=== PATIENT | female | born 1940 | race Caucasian/White ===

== ENCOUNTER 2020-07-22 13:01 | Inpatient (IN) | payer MEDICARE, MEDICAID ==
[~2020-07-22] VITALS: Ht 170.2 cm; Wt 81.6 kg
[2020-07-22] MEDS ORDERED: ASPIRIN 300 MG RECTAL SUPP RC ONE ×2 (13:45→13:57)
[2020-07-22] MEDS ORDERED: IV NORMAL SALINE 1000 ML BAG IV ONE ×3 (14:45→18:15)
[2020-07-22] MEDS ORDERED: NOREPINEPHRINE BITARTRATE 8 MG in IV NORMAL SALINE 242 ML IV PRN (15:00)
[2020-07-22] MEDS ORDERED: DILTIAZEM HCL 25 MG IV ONE (15:42)
[2020-07-22] MEDS ORDERED: DILTIAZEM HCL 25 MG IV IV ONE ×3 (15:45→16:00)
[2020-07-22 15:47] LABS: ALANINE AMINOTRANSFERASE 16 U/L (14-59); ALKALINE PHOSPHATASE 79 U/L (50-136); ASPARTATE AMINOTRANSFERASE 9 U/L (15-37); BILIRUBIN,TOTAL 0.5 mg/dL (0.2-1.0); CARBON DIOXIDE 20 mmol/L (21-32); CHLORIDE 101 mmol/L (98-107); CREATINE KINASE, TOTAL 31 U/L (26-192); CREATININE 4.1 mg/dL (0.6-1.3); LACTATE DEHYDROGENASE 168 U/L (81-234); POTASSIUM 4.3 mmol/L (3.5-5.1); TOTAL PROTEIN, SERUM 6.7 g/dL (6.4-8.2)
[2020-07-22 15:49] LABS: FERRITIN 373 ng/mL (8-252)
[2020-07-22 16:01] LABS: GLUCOSE 1605 mg/dL (74-106); UREA NITROGEN, BLOOD 98 mg/dL (7-18)
[2020-07-22 16:09] LABS: BASOPHILS % (AUTO) 0.1 % (0.0-2.0); EOSINOPHILS % (AUTO) 0.1 % (0.0-7.0); LYMPHOCYTES # (AUTO) 0.5 K/uL (20.0-40.0); LYMPHOCYTES % (AUTO) 3.8 % (20.5-51.5); MEAN CORPUSCULAR HEMOGLOBIN 32.1 uug (24.7-32.8); MEAN CORPUSCULAR HGB CONC 28 g/dL (32.3-35.6); MEAN CORPUSCULAR VOLUME 114.9 fL (75.5-95.3); NEUTROPHILS # (AUTO) 10.6 K/uL (1.8-8.9); PLATELET COUNT (AUTO) 192 K/uL (179-408); WHITE BLOOD COUNT (AUTO) 12.1 K/uL (3.8-11.8)
[2020-07-22 16:14] LABS: HEMATOCRIT 42.6 % (31.2-41.9); HEMOGLOBIN 11.9 g/dL (10.9-14.3)
[2020-07-22] MEDS ORDERED: INSULIN REGULAR, HUMAN 300 UNIT/3 ML VIAL IV ONE (16:15)
[2020-07-22] MEDS ORDERED: INSULIN REGULAR, HUMAN 300 UNIT/3 ML VIAL ONE (16:21)
[2020-07-22] MEDS ORDERED: AMIODARONE HCL IV 150 MG in IV DEXTROSE 5% 100 ML IV ONE (16:30)
[2020-07-22] MEDS ORDERED: AMIODARONE HCL IV 450 MG in IV DEXTROSE 5% 250 ML IV PRN (16:30)
[2020-07-22] MEDS ORDERED: INSULIN REGULAR, HUMAN 100 UNITS in IV NORMAL SALINE 100 ML IV ONE ×2 (16:30)
[2020-07-22] MEDS ORDERED: AMIODARONE HCL 150 MG/3 ML VIAL IV ONE (16:35)
[2020-07-22 17:59] LABS: *BILIRUBIN,URIN NEGATIVE (NEGATIVE); *BLOOD, URINE NEGATIVE (NEGATIVE); *CLARITY,URINE CLEAR (CLEAR); *COLOR,URINE YELLOW (YELLOW); *KETONES,URINE TRACE (NEGATIVE); *UROBILINOGEN,URINE 0.2 E.U./dl (NORMAL); LEUKOCYTE ESTERASE ,URINE NEGATIVE (NEGATIVE); NITRITE, URINE NEGATIVE (NEGATIVE); UGLUCOSE 2+ (NEGATIVE)
[2020-07-22] MEDS: INSULIN REGULAR, HUMAN 100 UNIT in IV NORMAL SALINE 99 ML IV PRN ×2 (19:05)
[2020-07-22] MEDS: PHENYLEPHRINE IV 50 MG in IV NORMAL SALINE 245 ML IV PRN (19:27)
[2020-07-22] MEDS ORDERED: ACETAMINOPHEN 650 MG SUPP.RECT RC PRN (19:30)
[2020-07-22] MEDS ORDERED: IV D5/ 0.9% NACL 1,000 ML IV PRN (19:30)
[2020-07-22] MEDS ORDERED: ONDANSETRON 4 MG/2 ML VIAL IV PRN (19:30)
[2020-07-22] MEDS ORDERED: VANCOMYCIN IV 1,000 MG in IV DEXTROSE 5% 250 ML IV ONE (20:00)
[2020-07-22] MEDS: MEROPENEM 500 MG in IV NORMAL SALINE 50 ML IV SCH (21:12)
[2020-07-22 23:49] LABS: BACTERIA,URINE NONE SEEN /HPF (NONE SEEN); RBC,URINE 0-3 /HPF (0-3); SQUAMOUS EPITHELIAL CELL,UR FEW /HPF (NONE SEEN); URINE AMORPHOUS URATE FEW /HPF; WBC,URINE 0-3 /HPF (0-3)
[2020-07-23 00:37] LABS: BAND % (MANUAL) 2 % (0-10); LYMPHOCYTES % (MANUAL) 5 % (20-40); NEUTROPHILS % (MANUAL) 85 % (42-75)
[2020-07-23 00:38] LABS: MONOCYTES % (MANUAL) 8 % (2-10)
[2020-07-23 06:34] LABS: BASOPHILS % (AUTO) 0.1 % (0.0-2.0); EOSINOPHILS % (AUTO) 0.2 % (0.0-7.0); HEMATOCRIT 34.4 % (31.2-41.9); HEMOGLOBIN 11.5 g/dL (10.9-14.3); LYMPHOCYTES # (AUTO) 0.8 K/uL (20.0-40.0); LYMPHOCYTES % (AUTO) 9.6 % (20.5-51.5); MEAN CORPUSCULAR HEMOGLOBIN 32.8 uug (24.7-32.8); MEAN CORPUSCULAR HGB CONC 34 g/dL (32.3-35.6); MEAN CORPUSCULAR VOLUME 97.8 fL (75.5-95.3); MONOCYTES # (AUTO) 0.8 K/uL (2.0-10.0); MONOCYTES % (AUTO) 9.2 % (0.0-11.0); NEUTROPHILS # (AUTO) 7.1 K/uL (1.8-8.9); NEUTROPHILS % (AUTO) 80.9 % (38.5-71.5); PLATELET COUNT (AUTO) 190 K/uL (179-408); RED BLOOD CELL COUNT(AUTO) 3.52 MIL/uL (3.63-4.92); WHITE BLOOD COUNT (AUTO) 8.8 K/uL (3.8-11.8)
[2020-07-23 07:17] LABS: THYROID STIMULATING HORMONE 0.671 mIU/mL (0.358-3.740)
[2020-07-23] MEDS: AMIODARONE HCL 200 MG TABLET PO SCH ×2 (09:00→21:22)
[2020-07-23] MEDS ORDERED: PANTOPRAZOLE SODIUM 40 MG VIAL IV SCH (09:00)
[2020-07-23 09:20] LABS: ALANINE AMINOTRANSFERASE 20 U/L (14-59); ALKALINE PHOSPHATASE 72 U/L (50-136); ASPARTATE AMINOTRANSFERASE 14 U/L (15-37); BILIRUBIN,TOTAL 0.5 mg/dL (0.2-1.0); CARBON DIOXIDE 23 mmol/L (21-32); CHLORIDE 122 mmol/L (98-107); CHOLESTEROL 107 mg/dL (<200); CREATININE 2.6 mg/dL (0.6-1.3); FERRITIN 313 ng/mL (8-252); HDL CHOLESTEROL 64 mg/dL (40-60); MAGNESIUM 2.1 mg/dL (1.8-2.4); PHOSPHOROUS 2.6 mg/dL (2.5-4.9); POTASSIUM 3.1 mmol/L (3.5-5.1); TOTAL PROTEIN, SERUM 6.1 g/dL (6.4-8.2); TRIGLYCERIDES 81 MG/DL (30-150)
[2020-07-23 09:21] LABS: GLUCOSE 307 mg/dL (74-106)
[2020-07-23] MEDS ORDERED: VANCOMYCIN IV 1,000 MG in IV DEXTROSE 5% 250 ML IV ONE (09:30)
[2020-07-23 09:33] LABS: UREA NITROGEN, BLOOD 85 mg/dL (7-18)
[2020-07-23] MEDS ORDERED: FAMOTIDINE. 20 MG/2 ML VIAL IV ONE (09:36)
[2020-07-23] MEDS: FAMOTIDINE. 20 MG/2 ML VIAL IV SCH (09:37)
[2020-07-23] MEDS: MEROPENEM 500 MG in IV NORMAL SALINE 50 ML IV SCH ×2 (09:37→21:22)
[2020-07-23] MEDS ORDERED: VANCOMYCIN IV 200 ML ONE (10:03)
[2020-07-23 11:48] LABS: CREATINE KINASE, TOTAL 52 U/L (26-192)
[2020-07-23] MEDS: BLOOD SUGAR DIAGNOSTIC 1 EACH STRIP VI SCH ×8 (16:11→23:06)
[2020-07-23] MEDS ORDERED: AMIODARONE HCL 200 MG TABLET ONE (21:22)
[2020-07-24] VITALS (42 sets, daily range): BP systolic 71–166; BP diastolic 38–106
[2020-07-24] MEDS: BLOOD SUGAR DIAGNOSTIC 1 EACH STRIP VI SCH ×24 (00:13→23:05)
[2020-07-24 06:07] LABS: BASOPHILS % (AUTO) 0.3 % (0.0-2.0); EOSINOPHILS % (AUTO) 0.2 % (0.0-7.0); HEMATOCRIT 36.2 % (31.2-41.9); HEMOGLOBIN 12.6 g/dL (10.9-14.3); LYMPHOCYTES # (AUTO) 1.1 K/uL (20.0-40.0); LYMPHOCYTES % (AUTO) 9.7 % (20.5-51.5); MEAN CORPUSCULAR HEMOGLOBIN 33.8 uug (24.7-32.8); MEAN CORPUSCULAR HGB CONC 35 g/dL (32.3-35.6); MEAN CORPUSCULAR VOLUME 97.1 fL (75.5-95.3); MONOCYTES # (AUTO) 0.8 K/uL (2.0-10.0); MONOCYTES % (AUTO) 6.8 % (0.0-11.0); NEUTROPHILS # (AUTO) 9.2 K/uL (1.8-8.9); PLATELET COUNT (AUTO) 155 K/uL (179-408); RED BLOOD CELL COUNT(AUTO) 3.73 MIL/uL (3.63-4.92); WHITE BLOOD COUNT (AUTO) 11.1 K/uL (3.8-11.8)
[2020-07-24 06:11] LABS: ALANINE AMINOTRANSFERASE 19 U/L (14-59); ALKALINE PHOSPHATASE 70 U/L (50-136); ASPARTATE AMINOTRANSFERASE 16 U/L (15-37); BILIRUBIN,TOTAL 0.4 mg/dL (0.2-1.0); CARBON DIOXIDE 25 mmol/L (21-32); CHLORIDE 124 mmol/L (98-107); CREATININE 1.5 mg/dL (0.6-1.3); GLUCOSE 290 mg/dL (74-106); PHOSPHOROUS 2.5 mg/dL (2.5-4.9); POTASSIUM 3.7 mmol/L (3.5-5.1); UREA NITROGEN, BLOOD 64 mg/dL (7-18); VANCOMYCIN,RANDOM 10.7 ug/mL (18.0-26.0)
[2020-07-24] MEDS ORDERED: DIGOXIN 500 MCG/2 ML AMP IV ONE (07:00)
[2020-07-24] MEDS ORDERED: DIGOXIN 500 MCG/2 ML AMP ONE (07:02)
[2020-07-24] MEDS ORDERED: NOREPINEPHRINE BITARTRATE 32 MG in IV NORMAL SALINE 218 ML IV PRN (07:15)
[2020-07-24] MEDS: PHENYLEPHRINE IV 50 MG in IV NORMAL SALINE 245 ML IV PRN (07:58)
[2020-07-24] MEDS ORDERED: AMIODARONE HCL IV 150 MG in IV DEXTROSE 5% 100 ML IV ONE (08:00)
[2020-07-24] MEDS: FAMOTIDINE. 20 MG/2 ML VIAL IV SCH (08:17)
[2020-07-24] MEDS: MEROPENEM 1 G in IV NORMAL SALINE 100 ML IV SCH ×2 (08:17→21:16)
[2020-07-24] MEDS ORDERED: FAMOTIDINE. 20 MG/2 ML VIAL IV ONE (08:23)
[2020-07-24] MEDS: VANCOMYCIN IV 1,250 MG in IV DEXTROSE 5% 250 ML IV SCH (08:56)
[2020-07-24] MEDS: AMIODARONE HCL IV 450 MG in IV DEXTROSE 5% 250 ML IV PRN ×2 (09:29→17:52)
[2020-07-24] MEDS ORDERED: VANCOMYCIN IV 500 MG in IV DEXTROSE 5% 100 ML IV ONE (10:00)
[2020-07-24] MEDS ORDERED: PHENYLEPHRINE IV 100 MG in IV NORMAL SALINE 240 ML IV PRN (15:00)
[2020-07-24] MEDS ORDERED: MEROPENEM 1GM/NS 100ML IVPB **ER PYXIS ONLY IV ONE (20:59)
[2020-07-25] VITALS (37 sets, daily range): BP systolic 67–154; BP diastolic 39–97
[2020-07-25] MEDS: BLOOD SUGAR DIAGNOSTIC 1 EACH STRIP VI SCH ×16 (00:03→21:53)
[2020-07-25] MEDS: AMIODARONE HCL IV 450 MG in IV DEXTROSE 5% 250 ML IV PRN (08:32)
[2020-07-25] MEDS: INSULIN REGULAR, HUMAN 100 UNIT in IV NORMAL SALINE 99 ML IV PRN ×2 (08:32)
[2020-07-25 09:19] LABS: CREATININE 1.1 mg/dL (0.6-1.3); POTASSIUM 3.6 mmol/L (3.5-5.1)
[2020-07-25] MEDS ORDERED: DIGOXIN 500 MCG/2 ML AMP IV ONE (10:00)
[2020-07-25] MEDS: VANCOMYCIN IV 1,250 MG in IV DEXTROSE 5% 250 ML IV SCH (10:04)
[2020-07-25] MEDS: MEROPENEM 1 G in IV NORMAL SALINE 100 ML IV SCH ×2 (10:04→21:53)
[2020-07-25] MEDS: FAMOTIDINE. 20 MG/2 ML VIAL IV SCH (10:06)
[2020-07-25] MEDS ORDERED: INSULIN REGULAR, HUMAN 300 UNITS/3 ML VIAL SQ PRN (12:45)
[2020-07-25] MEDS ORDERED: DEXTROSE 50% 50 ML DISP.SYRIN IV PRN (12:45)
[2020-07-25] MEDS: INSULIN REGULAR, HUMAN 300 UNIT/3 ML VIAL SQ PRN ×3 (13:51→21:55)
[2020-07-25] MEDS ORDERED: ASPI81TA31 PO (17:01)
[2020-07-25] MEDS ORDERED: DIVA125C2 PO (17:01)
[2020-07-25] MEDS ORDERED: DIPH25CA83 PO (17:01)
[2020-07-25] MEDS ORDERED: ATOR10TA PO (17:01)
[2020-07-25] MEDS ORDERED: LATA2.5D15 EACHEYE (17:01)
[2020-07-25] MEDS ORDERED: LACT100C2 PO (17:01)
[2020-07-25] MEDS ORDERED: FERR325T28 PO (17:01)
[2020-07-25] MEDS ORDERED: MELA3TAB41 PO (17:01)
[2020-07-25] MEDS ORDERED: LISI-603 PO (17:01)
[2020-07-25] MEDS ORDERED: DEXT15DR6 EACHEYE (17:01)
[2020-07-25] MEDS ORDERED: ALEN70TA69 PO (17:01)
[2020-07-25] MEDS ORDERED: LACT10SO PO (17:01)
[2020-07-25] MEDS ORDERED: LEVO330T6 PO (17:01)
[2020-07-25] MEDS ORDERED: MULT-594 PO (17:02)
[2020-07-25] MEDS ORDERED: ALBU6.7H9 INH (17:02)
[2020-07-25] MEDS ORDERED: SITA50TA PO (17:02)
[2020-07-25] MEDS ORDERED: LACO50TA2 PO (17:02)
[2020-07-25] MEDS ORDERED: METO-356 PO (17:02)
[2020-07-25] MEDS ORDERED: MAGN400O6 PO (17:02)
[2020-07-25] MEDS ORDERED: ACET-2154 PO (17:02)
[2020-07-25] MEDS ORDERED: SENN-261 PO (17:02)
[2020-07-25] MEDS ORDERED: CALC-555 GT (17:02)
[2020-07-25] MEDS ORDERED: MV-M1TAB18 PO (17:02)
[2020-07-25] MEDS ORDERED: METF-494 PO (17:02)
[2020-07-25] MEDS ORDERED: CYAN-51 PO (17:02)
[2020-07-25] MEDS ORDERED: PRAS10TA5 PO (17:03)
[2020-07-25] MEDS ORDERED: FOLI0.8T PO (17:06)
[2020-07-25] MEDS: IV D5W 1000ML 1,000 ML IV PRN (20:32)
[2020-07-25] MEDS ORDERED: INSULIN GLARGINE,HUM 300 UNITS/3 ML CARTRIDGE SQ SCH (21:00)
[2020-07-25] MEDS: AMIODARONE HCL 200 MG TABLET PO SCH (21:07)
[2020-07-26] VITALS (19 sets, daily range): BP systolic 119–167; BP diastolic 46–91
[2020-07-26] MEDS: IV D5W 1000ML 1,000 ML IV PRN ×3 (03:53→22:35)
[2020-07-26] MEDS: BLOOD SUGAR DIAGNOSTIC 1 EACH STRIP VI SCH ×4 (06:42→21:07)
[2020-07-26] MEDS: INSULIN REGULAR, HUMAN 300 UNIT/3 ML VIAL SQ PRN ×3 (06:46→16:36)
[2020-07-26] MEDS: FAMOTIDINE. 20 MG/2 ML VIAL IV SCH (07:42)
[2020-07-26] MEDS: MEROPENEM 1 G in IV NORMAL SALINE 100 ML IV SCH ×2 (07:42→21:05)
[2020-07-26] MEDS: AMIODARONE HCL 200 MG TABLET PO SCH ×2 (07:43→21:04)
[2020-07-26] MEDS ORDERED: PRASUGREL HCL 5 MG TABLET PO SCH (09:00)
[2020-07-26] MEDS: VANCOMYCIN IV 1,250 MG in IV DEXTROSE 5% 250 ML IV SCH (09:41)
[2020-07-26] MEDS: METOPROLOL TARTRATE 25 MG TABLET PO SCH ×2 (09:45→21:05)
[2020-07-26 10:01] LABS: BASOPHILS # (AUTO) 0.2 K/uL (0.0-8.0); BASOPHILS % (AUTO) 2.4 % (0.0-2.0); EOSINOPHILS # (AUTO) 0.1 K/uL (0.0-0.7); EOSINOPHILS % (AUTO) 1.3 % (0.0-7.0); HEMATOCRIT 31.2 % (31.2-41.9); HEMOGLOBIN 10.4 g/dL (10.9-14.3); LYMPHOCYTES # (AUTO) 0.7 K/uL (20.0-40.0); LYMPHOCYTES % (AUTO) 8.5 % (20.5-51.5); MEAN CORPUSCULAR HEMOGLOBIN 32.5 uug (24.7-32.8); MEAN CORPUSCULAR HGB CONC 33 g/dL (32.3-35.6); MEAN CORPUSCULAR VOLUME 97.2 fL (75.5-95.3); MONOCYTES # (AUTO) 0.4 K/uL (2.0-10.0); MONOCYTES % (AUTO) 4.5 % (0.0-11.0); NEUTROPHILS # (AUTO) 6.9 K/uL (1.8-8.9); NEUTROPHILS % (AUTO) 83.3 % (38.5-71.5); PLATELET COUNT (AUTO) 101 K/uL (179-408); RED BLOOD CELL COUNT(AUTO) 3.21 MIL/uL (3.63-4.92); WHITE BLOOD COUNT (AUTO) 8.3 K/uL (3.8-11.8)
[2020-07-26 10:08] LABS: CREATININE 1.1 mg/dL (0.6-1.3); MAGNESIUM 1.7 mg/dL (1.8-2.4); POTASSIUM 3.3 mmol/L (3.5-5.1)
[2020-07-26] MEDS: POTASSIUM CHLORIDE 50 ML IV SCH ×3 (11:23→13:18)
[2020-07-26] MEDS ORDERED: Z GUARD REMEDY PASTE 57 GM TUBE TOP PRN (11:45)
[2020-07-26] MEDS ORDERED: POTASSIUM PHOSPHATE MM 15 MMOL in IV NORMAL SALINE 250 ML IV ONE (12:00)
[2020-07-26] MEDS ORDERED: MAGNESIUM SULFATE/D5W 100 ML IV SCH (12:30)
[2020-07-26] MEDS: POTASSIUM PHOSPHATE MM 7.5 MMOL in IV NORMAL SALINE 97.5 ML IV SCH ×2 (13:18→15:50)
[2020-07-26] MEDS: CLOPIDOGREL 75 MG TABLET PO SCH (15:50)
[2020-07-26] MEDS ORDERED: ACETAMINOPHEN 650 MG/20.3 ML LIQUID UDC GT PRN (16:00)
[2020-07-26] MEDS: INSULIN GLARGINE,HUM 300 UNITS/3 ML CARTRIDGE SQ SCH (21:06)
[2020-07-27 00:30] VITALS: BP 139/58
[2020-07-27 01:40] VITALS: BP 101/62
[2020-07-27 06:30] VITALS: BP 154/64
[2020-07-27] MEDS: BLOOD SUGAR DIAGNOSTIC 1 EACH STRIP VI SCH ×3 (07:05→17:15)
[2020-07-27 07:24] LABS: CREATININE 0.8 mg/dL (0.6-1.3); POTASSIUM 4.1 mmol/L (3.5-5.1)
[2020-07-27] MEDS: IV D5W 1000ML 1,000 ML IV PRN ×2 (07:29→17:16)
[2020-07-27 08:00] VITALS: BP 110/45
[2020-07-27] MEDS: MEROPENEM 1 G in IV NORMAL SALINE 100 ML IV SCH ×2 (08:06→22:39)
[2020-07-27] MEDS: CLOPIDOGREL 75 MG TABLET PO SCH (08:32)
[2020-07-27] MEDS: DOCUSATE SODIUM 100 MG CAPSULE PO SCH ×2 (08:32→22:43)
[2020-07-27] MEDS: FAMOTIDINE. 20 MG/2 ML VIAL IV SCH (08:32)
[2020-07-27] MEDS: AMIODARONE HCL 200 MG TABLET PO SCH ×2 (08:33→22:42)
[2020-07-27] MEDS: METOPROLOL TARTRATE 25 MG TABLET PO SCH ×2 (08:33→22:43)
[2020-07-27] MEDS: VANCOMYCIN IV 1,250 MG in IV DEXTROSE 5% 250 ML IV SCH (08:34)
[2020-07-27] MEDS: INSULIN REGULAR, HUMAN 300 UNIT/3 ML VIAL SQ PRN ×3 (08:37→17:16)
[2020-07-27 09:04] LABS: MAGNESIUM 2.1 mg/dL (1.8-2.4); PHOSPHOROUS 2.6 mg/dL (2.5-4.9)
[2020-07-27] MEDS ORDERED: DEXTROSE 50% 50 ML DISP.SYRIN IV PRN (10:45)
[2020-07-27] MEDS ORDERED: METOPROLOL SUCCINATE XL 25 MG TAB.SR.24H PO SCH (11:30)
[2020-07-27] MEDS: FERROUS SULFATE 325 MG TABEC PO SCH (11:30)
[2020-07-27] MEDS ORDERED: PRASUGREL HYDROCHLORIDE 10 MG PO SCH (11:30)
[2020-07-27] MEDS ORDERED: ALBUTEROL SULFATE 2.5 MG/ 0.5 ML NEBU NEB PRN (11:45)
[2020-07-27 12:00] VITALS: BP 118/45
[2020-07-27] MEDS: LACOSAMIDE 50 MG TABLET PO SCH ×2 (12:03→16:59)
[2020-07-27] MEDS: DIVALPROEX SPRINKLE 125 MG CAP.SPRINK PO SCH ×2 (12:03→16:59)
[2020-07-27] MEDS: ASPIRIN 81 MG TAB.CHEW PO SCH (12:03)
[2020-07-27] MEDS: LINAGLIPTIN 5 MG TABLET PO SCH (12:04)
[2020-07-27] MEDS: CALCIUM CARB/VITAMIN D 500MG-200UNITS TABLET GT SCH ×2 (12:04→16:59)
[2020-07-27] MEDS: LATANOPROST OPHT DROP 2.5 ML BOTTLE EACHEYE SCH ×2 (12:06→17:01)
[2020-07-27] MEDS: ATORVASTATIN 10 MG TABLET PO SCH ×2 (12:23→22:41)
[2020-07-27] MEDS ORDERED: GLUCERNA 1.2 1000ML LIQUID GT PRN (13:30)
[2020-07-27 20:28] VITALS: BP 110/41
[2020-07-27] MEDS: INSULIN GLARGINE,HUM 300 UNITS/3 ML CARTRIDGE SQ SCH (21:30)
[2020-07-27] MEDS: MELATONIN 3 MG TABLET PO SCH (22:43)
[2020-07-28] MEDS: BLOOD SUGAR DIAGNOSTIC 1 EACH STRIP VI SCH ×4 (00:15→17:34)
[2020-07-28] MEDS: IV D5W 1000ML 1,000 ML IV PRN (00:15)
[2020-07-28 00:24] VITALS: BP 110/50
[2020-07-28] MEDS: INSULIN REGULAR, HUMAN 300 UNIT/3 ML VIAL SQ PRN ×4 (00:30→17:36)
[2020-07-28 04:20] VITALS: BP 109/63
[2020-07-28] MEDS ORDERED: LISINOPRIL 20 MG TABLET PO SCH (09:00)
[2020-07-28 09:30] LABS: BASOPHILS # (AUTO) 0.1 K/uL (0.0-8.0); EOSINOPHILS # (AUTO) 0.2 K/uL (0.0-0.7); EOSINOPHILS % (AUTO) 2.5 % (0.0-7.0); HEMOGLOBIN 10.7 g/dL (10.9-14.3); LYMPHOCYTES # (AUTO) 0.8 K/uL (20.0-40.0); MEAN CORPUSCULAR HEMOGLOBIN 31.9 uug (24.7-32.8); MEAN CORPUSCULAR HGB CONC 33 g/dL (32.3-35.6); MEAN CORPUSCULAR VOLUME 95.4 fL (75.5-95.3); MONOCYTES # (AUTO) 0.6 K/uL (2.0-10.0); MONOCYTES % (AUTO) 8.1 % (0.0-11.0); NEUTROPHILS # (AUTO) 5.8 K/uL (1.8-8.9); NEUTROPHILS % (AUTO) 76.4 % (38.5-71.5); PLATELET COUNT (AUTO) 175 K/uL (179-408); RED BLOOD CELL COUNT(AUTO) 3.35 MIL/uL (3.63-4.92); WHITE BLOOD COUNT (AUTO) 7.6 K/uL (3.8-11.8)
[2020-07-28 09:38] LABS: CREATININE 0.8 mg/dL (0.6-1.3); POTASSIUM 3.8 mmol/L (3.5-5.1)
[2020-07-28] MEDS: CALCIUM CARB/VITAMIN D 500MG-200UNITS TABLET GT SCH ×2 (10:10→17:34)
[2020-07-28] MEDS: ASPIRIN 81 MG TAB.CHEW PO SCH (10:11)
[2020-07-28] MEDS: FAMOTIDINE. 20 MG/2 ML VIAL IV SCH (10:11)
[2020-07-28] MEDS: MEROPENEM 1 G in IV NORMAL SALINE 100 ML IV SCH ×2 (10:11→20:35)
[2020-07-28] MEDS: DOCUSATE SODIUM 100 MG CAPSULE PO SCH ×2 (10:12→20:36)
[2020-07-28] MEDS: AMIODARONE HCL 200 MG TABLET PO SCH ×2 (10:20→20:38)
[2020-07-28] MEDS: DIVALPROEX SPRINKLE 125 MG CAP.SPRINK PO SCH ×2 (10:21→17:34)
[2020-07-28] MEDS: LACOSAMIDE 50 MG TABLET PO SCH ×2 (10:21→17:34)
[2020-07-28] MEDS: METOPROLOL TARTRATE 25 MG TABLET PO SCH ×2 (10:21→20:43)
[2020-07-28] MEDS: CLOPIDOGREL 75 MG TABLET PO SCH (10:21)
[2020-07-28] MEDS: LINAGLIPTIN 5 MG TABLET PO SCH (10:21)
[2020-07-28] MEDS: FERROUS SULFATE 325 MG TABEC PO SCH (10:21)
[2020-07-28 11:30] VITALS: BP 137/67
[2020-07-28 16:03] VITALS: BP 107/54
[2020-07-28] MEDS: LATANOPROST OPHT DROP 2.5 ML BOTTLE EACHEYE SCH (19:01)
[2020-07-28 20:29] VITALS: BP 102/63
[2020-07-28] MEDS: ATORVASTATIN 10 MG TABLET PO SCH (20:36)
[2020-07-28] MEDS: MELATONIN 3 MG TABLET PO SCH (20:39)
[2020-07-28] MEDS: INSULIN GLARGINE,HUM 300 UNITS/3 ML CARTRIDGE SQ SCH (20:41)
[2020-07-29] MEDS: INSULIN REGULAR, HUMAN 300 UNIT/3 ML VIAL SQ PRN ×5 (00:02→23:19)
[2020-07-29 00:34] VITALS: BP 110/65
[2020-07-29 04:00] VITALS: BP 101/54
[2020-07-29] MEDS: BLOOD SUGAR DIAGNOSTIC 1 EACH STRIP VI SCH ×5 (05:31→23:02)
[2020-07-29 06:08] VITALS: BP 101/54
[2020-07-29] MEDS ORDERED: LISINOPRIL 20 MG TABLET PO SCH (09:00)
[2020-07-29] MEDS: DOCUSATE SODIUM 100 MG CAPSULE PO SCH (09:00)
[2020-07-29] MEDS: FERROUS SULFATE 325 MG TABEC PO SCH (10:19)
[2020-07-29] MEDS: ASPIRIN 81 MG TAB.CHEW PO SCH (10:20)
[2020-07-29] MEDS: CALCIUM CARB/VITAMIN D 500MG-200UNITS TABLET GT SCH ×2 (10:21→17:07)
[2020-07-29] MEDS: DIVALPROEX SPRINKLE 125 MG CAP.SPRINK PO SCH ×2 (10:22→17:07)
[2020-07-29] MEDS: CLOPIDOGREL 75 MG TABLET PO SCH (10:24)
[2020-07-29] MEDS: AMIODARONE HCL 200 MG TABLET PO SCH (10:29)
[2020-07-29] MEDS: MEROPENEM 1 G in IV NORMAL SALINE 100 ML IV SCH (10:30)
[2020-07-29] MEDS: FAMOTIDINE. 20 MG/2 ML VIAL IV SCH (10:31)
[2020-07-29] MEDS: LINAGLIPTIN 5 MG TABLET PO SCH (10:31)
[2020-07-29] MEDS: LACOSAMIDE 50 MG TABLET PO SCH (10:31)
[2020-07-29] MEDS: METOPROLOL TARTRATE 25 MG TABLET PO SCH (10:34)
[2020-07-29 11:10] VITALS: BP 134/78
[2020-07-29 16:11] VITALS: BP 146/48
[2020-07-29] MEDS: LATANOPROST OPHT DROP 2.5 ML BOTTLE EACHEYE SCH (17:08)
[2020-07-29] MEDS ORDERED: LACOSAMIDE 100 MG/10 ML UDC NG SCH (17:15)
[2020-07-29 20:00] VITALS: BP 147/56
[2020-07-29] MEDS ORDERED: MELATONIN 3 MG TABLET NG SCH (21:00)
[2020-07-29] MEDS ORDERED: METOPROLOL TARTRATE 25 MG TABLET NG SCH (21:00)
[2020-07-29] MEDS ORDERED: AMIODARONE HCL 200 MG TABLET NG SCH (21:00)
[2020-07-29] MEDS ORDERED: DOCUSATE SODIUM 100 MG/10 ML LIQUID UDC NG SCH (21:00)
[2020-07-29] MEDS ORDERED: ATORVASTATIN 10 MG TABLET NG SCH (21:00)
[2020-07-29] MEDS: INSULIN GLARGINE,HUM 300 UNITS/3 ML CARTRIDGE SQ SCH (23:21)
[2020-07-30 04:00] VITALS: BP 130/64
[2020-07-30] MEDS: BLOOD SUGAR DIAGNOSTIC 1 EACH STRIP VI SCH ×4 (07:00→20:30)
[2020-07-30] MEDS ORDERED: PANTOPRAZOLE ORAL SUSPENSION 40 MG SUSPDR.PKT GT SCH (07:10)
[2020-07-30] MEDS ORDERED: CLOPIDOGREL 75 MG TABLET NG SCH (09:00)
[2020-07-30] MEDS ORDERED: LINAGLIPTIN 5 MG TABLET NG SCH (09:00)
[2020-07-30] MEDS ORDERED: LISINOPRIL 20 MG TABLET NG SCH (09:00)
[2020-07-30] MEDS ORDERED: FERROUS SULFATE 300 MG/5 ML LIQUID UDC NG SCH (09:00)
[2020-07-30] MEDS ORDERED: ASPIRIN 81 MG TAB.CHEW NG SCH (09:00)
[2020-07-30] MEDS ORDERED: ASPIRIN 81 MG TAB.CHEW PO SCH (10:56)
[2020-07-30] MEDS ORDERED: AMIODARONE HCL 200 MG TABLET PO SCH ×2 (10:57→21:00)
[2020-07-30 11:06] VITALS: BP 128/57
[2020-07-30] MEDS ORDERED: ATORVASTATIN 10 MG TABLET PO SCH (11:57)
[2020-07-30] MEDS ORDERED: GLUCERNA 1.2 1000ML LIQUID PO PRN (11:58)
[2020-07-30] MEDS ORDERED: FERROUS SULFATE 300 MG/5 ML LIQUID UDC PO SCH (11:58)
[2020-07-30] MEDS ORDERED: MELATONIN 3 MG TABLET PO SCH (11:59)
[2020-07-30] MEDS ORDERED: CLOPIDOGREL 75 MG TABLET PO SCH (11:59)
[2020-07-30] MEDS ORDERED: LISINOPRIL 20 MG TABLET PO SCH (11:59)
[2020-07-30] MEDS ORDERED: ACETAMINOPHEN 325 MG TABLET PO PRN (12:00)
[2020-07-30] MEDS ORDERED: LINAGLIPTIN 5 MG TABLET PO SCH (12:00)
[2020-07-30] MEDS ORDERED: PANTOPRAZOLE ORAL SUSPENSION 40 MG SUSPDR.PKT PO SCH (12:00)
[2020-07-30] MEDS: DIVALPROEX SPRINKLE 125 MG CAP.SPRINK PO SCH ×2 (13:28→16:13)
[2020-07-30] MEDS: INSULIN REGULAR, HUMAN 300 UNIT/3 ML VIAL SQ PRN (13:33)
[2020-07-30] MEDS ORDERED: INSULIN REGULAR, HUMAN 300 UNIT/3 ML VIAL SQ PRN (16:00)
[2020-07-30] MEDS ORDERED: DEXTROSE 50% 50 ML DISP.SYRIN IV PRN (16:00)
[2020-07-30] MEDS ORDERED: INSULIN REGULAR, HUMAN 300 UNITS/3 ML VIAL SQ PRN (16:00)
[2020-07-30 16:05] VITALS: BP 121/51
[2020-07-30] MEDS: LACOSAMIDE 100 MG/10 ML UDC PO SCH (16:14)
[2020-07-30] MEDS: CALCIUM CARB/VITAMIN D 500MG-200UNITS TABLET PO SCH (16:14)
[2020-07-30] MEDS: LATANOPROST OPHT DROP 2.5 ML BOTTLE EACHEYE SCH (17:16)
[2020-07-30 20:00] VITALS: BP 134/71
[2020-07-30] MEDS: DOCUSATE SODIUM 100 MG/10 ML LIQUID UDC PO SCH (20:07)
[2020-07-30] MEDS: METOPROLOL TARTRATE 25 MG TABLET PO SCH (20:25)
[2020-07-30] MEDS: INSULIN GLARGINE,HUM 300 UNITS/3 ML CARTRIDGE SQ SCH (20:33)
[2020-07-31 04:30] VITALS: BP 137/58
[2020-07-31] MEDS: BLOOD SUGAR DIAGNOSTIC 1 EACH STRIP VI SCH ×3 (06:58→17:21)
[2020-07-31 07:49] LABS: BASOPHILS % (AUTO) 0.4 % (0.0-2.0); EOSINOPHILS # (AUTO) 0.2 K/uL (0.0-0.7); EOSINOPHILS % (AUTO) 2.6 % (0.0-7.0); HEMATOCRIT 27.8 % (31.2-41.9); HEMOGLOBIN 9.7 g/dL (10.9-14.3); LYMPHOCYTES % (AUTO) 10.9 % (20.5-51.5); MEAN CORPUSCULAR HGB CONC 35 g/dL (32.3-35.6); MEAN CORPUSCULAR VOLUME 94.5 fL (75.5-95.3); MONOCYTES # (AUTO) 0.6 K/uL (2.0-10.0); MONOCYTES % (AUTO) 6.5 % (0.0-11.0); NEUTROPHILS # (AUTO) 7.3 K/uL (1.8-8.9); NEUTROPHILS % (AUTO) 79.6 % (38.5-71.5); PLATELET COUNT (AUTO) 345 K/uL (179-408); RED BLOOD CELL COUNT(AUTO) 2.94 MIL/uL (3.63-4.92); WHITE BLOOD COUNT (AUTO) 9.2 K/uL (3.8-11.8)
[2020-07-31 07:55] LABS: CREATININE 0.7 mg/dL (0.6-1.3); POTASSIUM 3.7 mmol/L (3.5-5.1)
[2020-07-31] MEDS ORDERED: METO25TA6 PO (08:47)
[2020-07-31] MEDS ORDERED: LISI-603 PO (08:47)
[2020-07-31] MEDS ORDERED: AMIO200T6 PO (08:47)
[2020-07-31] MEDS: LACOSAMIDE 100 MG/10 ML UDC PO SCH ×2 (09:00→17:22)
[2020-07-31] MEDS: DOCUSATE SODIUM 100 MG/10 ML LIQUID UDC PO SCH (10:35)
[2020-07-31] MEDS: CALCIUM CARB/VITAMIN D 500MG-200UNITS TABLET PO SCH ×2 (10:35→17:22)
[2020-07-31] MEDS: DIVALPROEX SPRINKLE 125 MG CAP.SPRINK PO SCH ×2 (10:43→17:22)
[2020-07-31] MEDS: METOPROLOL TARTRATE 25 MG TABLET PO SCH (10:44)
[2020-07-31 11:12] VITALS: BP 130/59
[2020-07-31 15:44] VITALS: BP 147/61
[2020-07-31] MEDS: LATANOPROST OPHT DROP 2.5 ML BOTTLE EACHEYE SCH (17:23)
[2020-08-01] MEDS ORDERED: AMIODARONE HCL 200 MG TABLET PO SCH (09:00)
== END 2020-07-31 18:30 | DRG 871 ==
LOC: ER 13:01 → TRANSITION 17:48 → CCU 07-25 06:08 → TELE3 07-27 00:45 → MEDSURG3 07-29 16:10 → MED 07-30 17:00
PROVIDERS: ADMIT Internal Medicine; ATTEND Family Medicine
PROC: 02HV33Z Insertion of Infusion Device into Superior Vena Cava, Percutaneous Approach (ICD-10-PCS; principal; 2020-07-22)
PROC: B548ZZA Ultrasonography of Superior Vena Cava, Guidance (ICD-10-PCS; 2020-07-22)
DX: A41.9 Sepsis, unspecified organism (principal); E11.10 Type 2 diabetes mellitus with ketoacidosis without coma; N17.0 Acute kidney failure with tubular necrosis; R65.21 Severe sepsis with septic shock; E43 Unspecified severe protein-calorie malnutrition; G92 Toxic encephalopathy; I21.A1 Myocardial infarction type 2; E11.00 Type 2 diabetes mellitus with hyperosmolarity without nonketotic hyperglycemic-hyperosmolar coma (NKHHC); R40.2224 Coma scale, best verbal response, incomprehensible words, 24 hours or more after hospital admission; D68.69 Other thrombophilia; E87.0 Hyperosmolality and hypernatremia; E86.1 Hypovolemia; G40.909 Epilepsy, unspecified, not intractable, without status epilepticus; I25.10 Atherosclerotic heart disease of native coronary artery without angina pectoris; I48.0 Paroxysmal atrial fibrillation; Z20.822 Contact with and (suspected) exposure to COVID-19; R13.10 Dysphagia, unspecified; N18.9 Chronic kidney disease, unspecified; E11.22 Type 2 diabetes mellitus with diabetic chronic kidney disease; Z88.0 Allergy status to penicillin; K56.41 Fecal impaction; Z79.84 Long term (current) use of oral hypoglycemic drugs; I50.9 Heart failure, unspecified; E87.6 Hypokalemia; F31.9 Bipolar disorder, unspecified; Z68.28 Body mass index [BMI] 28.0-28.9, adult; R40.2144 Coma scale, eyes open, spontaneous, 24 hours or more after hospital admission; R40.2354 Coma scale, best motor response, localizes pain, 24 hours or more after hospital admission
CPT/HCPCS: 36415; 51702; 70030-TC; 70450; 71045; 83605; 83615; 83735; 84100; 84443; 85025; 85730; 86140; 87040; 87086; 93005; 93307; A4663; G0378; J0282; J1160; J1815; J2185; J2370; J3370; J3475; J3480; J3490; J7030; J7042; J7050; J7060; J7070; U0003